=== PATIENT | male | born 1965 | race Asian ===

== ENCOUNTER 2020-08-19 21:35 | Inpatient (IN) | payer OTHER, SELFPAY ==
[2020-08-19 22:01] LABS: Basophils % 0.7 % (0-1.3); Hematocrit 42.6 % (39.6-49.0); Lymphocytes % 28.6 % (15.3-44.8); MPV 7.5 fL (7.6-11.3); RBC Red Blood Cell Count 4.72 M/uL (4.33-5.43)
[2020-08-19] MEDS ORDERED: ONDANSETRON 4 MG/2 ML VIAL ONE (22:04)
[2020-08-19] MEDS ORDERED: NA CHLORIDE 0.9% 1,000 ML ONE (22:04)
[2020-08-19] MEDS ORDERED: MORPHINE 4 MG/ML SYR ONE (22:04)
[2020-08-19 22:20] LABS: ALT/SGPT 34 U/L (12-78); AST/SGOT 24 U/L (15-37); Albumin 4.1 g/dL (3.4-5.0); Alkaline Phosphatase 63 U/L (45-117); BUN Blood Urea Nitrogen 13 mg/dL (7-18); Bicarbonate 28 mmol/L (21-32); Bilirubin Direct < 0.1 mg/dL (0-0.2); Bilirubin Total 0.3 mg/dL (0.2-1.0); Glucose Level 151 mg/dL (74-106); Lipase 136 U/L (73-393); Potassium 3.4 mmol/L (3.5-5.1); Protein, Total 8.8 g/dL (6.4-8.2); Sodium Level 140 mmol/L (136-145)
[2020-08-19] MEDS ORDERED: FENTANYL CITR 100 MCG/2 ML ONE (22:33)
[2020-08-19] MEDS ORDERED: HYDROMORPHONE HCL 1 MG/ML INJ ONE (23:25)
--- NOTE | 2020-08-20 00:39 | EDPHYS ---
Physician Documentation [facility] Name: Fred Bruno Age: 55 yrs Sex: Male : 1965 Arrival Date: 08/19/2020 Time: 21:39 Bed 18 Private MD: ED Physician Sachin Joseph HPI: 08/19 21:54 This 55 yrs old Male presents to ER via Wheelchair with complaints of Abdominal tw4 Pain. 21:54 The patient presents with abdominal pain in the upper abdomen. Onset: The tw4 symptoms/episode began/occurred today. The symptoms radiate to. Associated signs and symptoms: none. The symptoms are described as sharp. Modifying factors: The symptoms are alleviated by nothing, the symptoms are aggravated by nothing. Severity of pain: At its worst the pain was moderate. The patient has not experienced similar symptoms in the past. Historical: - Allergies: 21:46 No Known Drug Allergies; ll1 - PMHx: 21:46 Hypertension; Kidney stones; Sleep Apnea; ll1 - PSHx: 21:46 Cyst removed to right hand; Anal fistula; kidney stone; Lithotripsy; ll1 - Immunization history:: Flu vaccine is not up to date. - Social history:: Smoking status: Patient denies any tobacco usage or history of. ROS: 21:54 Constitutional: Negative for fever, chills, and weight loss, Eyes: Negative for injury, tw4 pain, redness, and discharge, Neck: Negative for injury, pain, and swelling, Cardiovascular: Negative for chest pain, palpitations, and edema, Respiratory: Negative for shortness of breath, cough, wheezing, and pleuritic chest pain, Back: Negative for injury and pain, MS/Extremity: Negative for injury and deformity, Skin: Negative for injury, rash, and discoloration, Neuro: Negative for headache, weakness, numbness, tingling, and seizure. 21:54 Abdomen/GI: Positive for abdominal pain, Negative for nausea and vomiting, nausea, vomiting, and diarrhea, nausea, vomiting, diarrhea, constipation, abdominal cramps, abdominal distension, anorexia, dysphagia, hematemesis, black/tarry stool, rectal pain. Exam: 21:54 Constitutional: This is a well developed, well nourished patient who is awake, alert, tw4 and in no acute distress. Head/Face: Normocephalic, atraumatic. Eyes: Pupils equal round and reactive to light, extra-ocular motions intact. Lids and lashes normal. Conjunctiva and sclera are non-icteric and not injected. Cornea within normal limits. Periorbital areas with no swelling, redness, or edema. Chest/axilla: Normal chest wall appearance and motion. Nontender with no deformity. No lesions are appreciated. Cardiovascular: Regular rate and rhythm with a normal S1 and S2. No gallops, murmurs, or rubs. Normal PMI, no JVD. No pulse deficits. Respiratory: Lungs have equal breath sounds bilaterally, clear to auscultation and percussion. No rales, rhonchi or wheezes noted. No increased work of breathing, no retractions or nasal flaring. Back: No spinal tenderness. No costovertebral tenderness. Full range of motion. Skin: Warm, dry with normal turgor. Normal color with no rashes, no lesions, and no evidence of cellulitis. MS/ Extremity: Pulses equal, no cyanosis. Neurovascular intact. Full, normal range of motion. Neuro: Awake and alert, GCS 15, oriented to person, place, time, and situation. Cranial nerves II-XII grossly intact. Motor strength 5/5 in all extremities. Sensory grossly intact. Cerebellar exam normal. Normal gait. 21:54 Abdomen/GI: Inspection: abdomen appears normal, Bowel sounds: diminished, Palpation: moderate abdominal tenderness, in the epigastric area and right upper quadrant. Vital Signs: 21:43 BP 164 / 89; Pulse 65; Resp 24; Temp 98.5; Pulse Ox 99% ; Pain 8/10; ll1 22:05 BP 102 / 63; Pulse 65; Resp 24; Pulse Ox 98% on R/A; rv 22:30 BP 153 / 95; Pulse 59; Resp 18; Pulse Ox 100% on R/A; lp1 23:00 BP 141 / 89; Pulse 65; Resp 20; Pulse Ox 100% on R/A; Pain 8/10; lp1 1108 00:31 BP 147 / 92; Pulse 71; Resp 23; Pulse Ox 99% on R/A; rv 01:00 Temp 98.6(O); lp1 MDM: 08/19 21:40 Patient medically screened. tw4 08/21 06:49 Differential diagnosis: gastroesophageal reflux disease, pancreatitis, Peptic Ulcer tw4 Disease, Peritonitis. Data reviewed: vital signs, nurses notes. Data interpreted: Pulse oximetry: Interpretation: normal. Counseling: I had a detailed discussion with the patient and/or guardian regarding: the historical points, exam findings, and any diagnostic results supporting the discharge/admit diagnosis. Special discussion: I discussed with the patient/guardian in detail that at this point there is no indication for admission to the hospital. It is understood, however, that if the symptoms persist or worsen the patient needs to return immediately for re-evaluation. 08/19 21:41 Order name: Basic Metabolic Panel; Complete Time: 22:24 tw 08/19 22:24 Interpretation: Normal except: CRE 1.53; GLUC 151; K 3.4; GFR 48. tw 08/19 21:41 Order name: CBC with Diff; Complete Time: 22:24 tw 08/19 22:24 Interpretation: Normal except: MPV 7.5. tw 08/19 21:41 Order name: Hepatic Function; Complete Time: 22:24 [facility] 08/19 22:24 Interpretation: Normal except: TP 8.8; GLOB 4.7; A/G 0.9. [facility] 08/19 21:41 Order name: Lipase; Complete Time: 22:24 [facility] 08/19 22:24 Interpretation: Within normal limits: LIP 136. tw 08/19 21:45 Order name: Troponin (emerg Dept Use Only); Complete Time: 22:24 [facility] 08/19 22:24 Interpretation: Within normal limits: TROPED < 0.02. tw 08/20 00:55 Order name: Basic Metabolic Panel EDVT 08/20 00:55 Order name: Basic Metabolic Panel EDVT 08/20 00:55 Order name: CBC with Automated Diff EDMS 08/20 00:55 Order name: CBC with Automated Diff EDMS 08/20 00:55 Order name: Lipase EDMS 08/20 00:55 Order name: Lipase EDMS 08/20 00:56 Order name: Liver (Hepatic) Function EDMS 08/20 00:56 Order name: Liver (Hepatic) Function EDMS 08/20 01:37 Order name: COVID-19 ar5 08/19 21:41 Order name: IV Saline Lock; Complete Time: 21:49 tw 08/19 21:45 Order name: US Abdomen Limited tw4 08/19 21:45 Order name: CT Abd/Pelvis - IV Contrast Only tw4 08/19 21:45 Order name: EKG; Complete Time: 21:46 [facility] 08/20 00:55 Order name: NPO EDVT 08/20 01:48 Order name: Urine Dipstick--Ancillary (enter results) ar5 08/20 02:01 Order name: CORONAVIRUS EDVT 08/20 02:02 Order name: Urine Dipstick-Ancillary EDVT 08/20 03:01 Order name: SARS-COV-2 RT PCR EDVT 08/19 21:41 Order name: Labs collected and sent; Complete Time: 21:49 [facility] 08/19 21:41 Order name: Urine Dipstick-Ancillary (obtain specimen); Complete Time: 01:57 [facility] 08/19 21:53 Order name: EKG - Nurse/Tech; Complete Time: 21:53 lp1 Administered Medications: 08/19 21:55 Drug: NS 0.9% 1000 ml Route: IV; Rate: 1 bolus; Site: right antecubital; rv 23:38 Follow up: IV Status: Completed infusion; IV Intake: 1000ml lp1 21:55 Drug: morphine 4 mg {Note: RASS 1.} Route: IVP; Site: right antecubital; rv 22:18 Follow up: Response: No change in condition; Pain is unchanged, physician notified lp1 21:56 Drug: Zofran (Ondansetron) 4 mg Route: IVP; Site: right antecubital; rv 23:00 Follow up: Response: No adverse reaction lp1 22:18 Drug: fentaNYL (PF) 25 mcg {Note: RASS 0.} Route: IVP; Site: right antecubital; lp1 23:00 Follow up: Response: Pain is unchanged, physician notified lp1 23:13 Drug: Dilaudid 1 mg Route: IVP; Site: right antecubital; lp1 23:38 Follow up: Response: Marked relief of symptoms; Pain is decreased; RASS: Alert and Calm lp1 (0) 08/20 00:58 Drug: Zosyn 3.375 grams Route: IVPB; Infused Over: 60 mins; Site: left antecubital; rv 01:06 Follow up: IV Status: Infusion continued upon admission rv 01:39 Drug: Dilaudid 0.5 mg {Note: RASS 0.} Route: IVP; Site: left antecubital; lp1 01:56 Follow up: Response: Marked relief of symptoms lp1 Disposition: 08/20/20 00:38 Hospitalization ordered by Angel Travis for Inpatient Admission. Preliminary diagnosis is Acute cholecystitis. - Bed requested for Telemetry/MedSurg (Inpatient). - Status is Inpatient Admission. em - Condition is Stable. - Problem is new. - Symptoms have improved. Signatures: Dispatcher [employer] EDMS Constanza Gutiérrez, RN RN Glenys Kennedy, RN RN Ilir Astorga, RN RN em Ela Lott, RN RN lp1 Sachin Josehp MD MD tw4 Km Turner, RN RN Clara Madrid, RN RN ll1 Corrections: (The following items were deleted from the chart) 00:44 00:38 Hospitalization Ordered by Angel Travis MD for Inpatient Admission. Preliminary diagnosis is Acute cholecystitis. Bed requested for Telemetry/MedSurg (Inpatient). Status is Inpatient Admission. Condition is Stable. Problem is new. Symptoms have improved. tw4 05:46 00:44 08/20/2020 00:38 Hospitalization Ordered by Angel Travis MD for Inpatient Admission. Preliminary diagnosis is Acute cholecystitis. Bed requested for [facility] ER HOLD. Status is Inpatient Admission. Condition is Stable. Problem is new. Symptoms have improved. 08:26 05:46 08/20/2020 00:38 Hospitalization Ordered by Angel Travis MD for Inpatient em Admission. Preliminary diagnosis is Acute cholecystitis. Bed requested for Telemetry/MedSurg (Inpatient). Status is Inpatient Admission. Condition is Stable. Problem is new. Symptoms have improved. mw
--- NOTE | 2020-08-20 00:39 | ER ---
Nurse's Notes [facility] Name: Fred Bruno Age: 55 yrs Sex: Male : 1965 Arrival Date: 08/19/2020 Time: 21:39 Bed 18 Private MD: Diagnosis: Acute cholecystitis Presentation: 08/19 21:43 Chief complaint: Patient states: Upper abdominal pain since 1700 today getting ll1 progressively worse. Pain radiates into chest and back. + N/V after eating supper. Temperature 99.5 at home. + SOB, no cough. + diaphoretic. Coronavirus screen: Client denies travel out of the [place] in the last 14 days. chills, difficulty breathing, fever, nausea, shortness of breath, vomiting. Client presents with at least one sign or symptom that may indicate coronavirus-19. Standard/surgical mask placed on the client. Ebola Screen: Patient denies travel to an Ebola-affected area in the 21 days before illness onset. Initial Sepsis Screen: Does the patient meet any 2 criteria? No. Patient's initial sepsis screen is negative. Does the patient have a suspected source of infection? Yes: Acute abdominal pain. Risk Assessment: Do you want to hurt yourself or someone else? Patient reports no desire to harm self or others. Onset of symptoms was August 19, 2020. 21:43 Method Of Arrival: Wheelchair ll1 21:43 Acuity: LILLIAN 2 ll1 Historical: - Allergies: 21:46 No Known Drug Allergies; ll1 - PMHx: 21:46 Hypertension; Kidney stones; Sleep Apnea; ll1 - PSHx: 21:46 Cyst removed to right hand; Anal fistula; kidney stone; Lithotripsy; ll1 - Immunization history:: Flu vaccine is not up to date. - Social history:: Smoking status: Patient denies any tobacco usage or history of. Screenin:00 Fall Risk None identified. rv 22:00 Abuse screen: Denies threats or abuse. Denies injuries from another. Nutritional rv screening: No deficits noted. Tuberculosis screening: No symptoms or risk factors identified. Assessment: 21:45 General: Appears uncomfortable, Behavior is restless. Pain: Complains of pain in lp1 epigastric area, right upper quadrant and left upper quadrant Pain radiates to back Pain currently is 8 out of 10 on a pain scale. Quality of pain is described as pressure, squeezing, Pain began 3 hours ago. Is continuous. Neuro: Level of Consciousness is awake, alert, obeys commands, Oriented to person, place, time, situation. Cardiovascular: Denies chest pain, Capillary refill < 3 seconds in bilateral fingers Rhythm is sinus rhythm. Respiratory: Respiratory pattern is hyperventilation. GI: Abdomen is non-distended, Bowel sounds present X 4 quads. Abdomen is tender to palpation in epigastric area, right upper quadrant and left upper quadrant. : No signs and/or symptoms were reported regarding the genitourinary system. EENT: No signs and/or symptoms were reported regarding the EENT system. Derm: Skin is intact, Skin is diaphoretic, Skin is normal. Musculoskeletal: No deficits noted. 22:17 Reassessment: Patient reports pain with no improvement; Provider notified; Verbal order lp1 given for Fentanyl 25mcg IV now. 22:25 Reassessment: Ultrasound at bedside. lp1 23:10 Reassessment: Provider notified of patient complaint of continued upper abdominal pain lp1 with no relief. 23:38 Reassessment: Patient returned from CT; Appears more comfortable, calm; Reports pain lp1 relief at this time. 08/20 01:38 Reassessment: Patient reports pain returning at this time; Verbal order from Dr. Joseph lp1 for Dilaudid 0.5mg IV now. 07:34 Reassessment: unable to give report at this time due to nurse still getting morning em report, will call back. Vital Signs: 08/19 21:43 BP 164 / 89; Pulse 65; Resp 24; Temp 98.5; Pulse Ox 99% ; Pain 8/10; ll1 22:05 BP 102 / 63; Pulse 65; Resp 24; Pulse Ox 98% on R/A; rv 22:30 BP 153 / 95; Pulse 59; Resp 18; Pulse Ox 100% on R/A; lp1 23:00 BP 141 / 89; Pulse 65; Resp 20; Pulse Ox 100% on R/A; Pain 8/10; lp1 08/20 00:31 BP 147 / 92; Pulse 71; Resp 23; Pulse Ox 99% on R/A; rv 01:00 Temp 98.6(O); lp1 ED Course: 08/19 21:39 Patient arrived in ED. ar5 21:40 Sachin Joseph MD is Attending Physician. tw4 21:42 Km Turner, RN is Primary Nurse. rv 21:45 Triage completed. ll1 21:45 Inserted saline lock: 20 gauge in right antecubital area, using aseptic technique. lp1 Blood collected. 21:45 Initial lab(s) drawn, by me, sent to lab. lp1 21:46 Arm band placed on Patient placed in an exam room, on a stretcher. ll1 21:49 EKG done, by ED staff, reviewed by Sachin Joseph MD. rv 22:00 Patient has correct armband on for positive identification. rv 22:12 Radiology exam delayed due to lab results not completed at this time. (BUN/Creatinine). mw3 22:50 Ultrasound completed. Patient tolerated well. Notified. sg3 23:25 Inserted saline lock: 20 gauge in left antecubital area, using aseptic technique. lp1 23:25 20g IV to R AC DC'd. lp1 23:36 Ela Lott, GUILLERMO is Primary Nurse. lp1 23:50 CT Abd/Pelvis - IV Contrast Only In Process Unspecified. EDMS 08/20 00:38 Angel Travis MD is Hospitalizing Provider. tw4 01:00 No provider procedures requiring assistance completed. IV is patent, with fluids rv infusing freely, Patient admitted, IV remains in place. 01:05 Abdomen Limited In Process Unspecified. EDMS Administered Medications: 08/19 21:55 Drug: NS 0.9% 1000 ml Route: IV; Rate: 1 bolus; Site: right antecubital; rv 23:38 Follow up: IV Status: Completed infusion; IV Intake: 1000ml lp1 21:55 Drug: morphine 4 mg {Note: RASS 1.} Route: IVP; Site: right antecubital; rv 22:18 Follow up: Response: No change in condition; Pain is unchanged, physician notified lp1 21:56 Drug: Zofran (Ondansetron) 4 mg Route: IVP; Site: right antecubital; rv 23:00 Follow up: Response: No adverse reaction lp1 22:18 Drug: fentaNYL (PF) 25 mcg {Note: RASS 0.} Route: IVP; Site: right antecubital; lp1 23:00 Follow up: Response: Pain is unchanged, physician notified lp1 23:13 Drug: Dilaudid 1 mg Route: IVP; Site: right antecubital; lp1 23:38 Follow up: Response: Marked relief of symptoms; Pain is decreased; RASS: Alert and Calm lp1 (0) 08/20 00:58 Drug: Zosyn 3.375 grams Route: IVPB; Infused Over: 60 mins; Site: left antecubital; rv 01:06 Follow up: IV Status: Infusion continued upon admission rv 01:39 Drug: Dilaudid 0.5 mg {Note: RASS 0.} Route: IVP; Site: left antecubital; lp1 01:56 Follow up: Response: Marked relief of symptoms lp1 Intake: 08/19 23:38 IV: 1000ml; Total: 1000ml. lp1 Outcome: 08/20 00:38 Decision to Hospitalize by Provider. tw4 01:01 Admitted to ER Hold. Please see [facility] for further documentation. rv 01:01 Condition: good 01:01 Instructed on the need for admit, Demonstrated understanding of instructions. 08:26 Patient left the ED. em Signatures: Dispatcher [employer] Ilir Callaway RN RN em Ela Lott RN RN lp1 Susanne Dai 3 Sachin Joseph MD MD tw4 Cheryl Pa 3 Km Turner RN RN rv Katie Desai ar5 Clara Madrid RN RN ll1
[2020-08-20] MEDS ORDERED: ONDANSETRON 4 MG/2 ML VIAL IV PRN ×2 (00:53→13:51)
[2020-08-20] MEDS: PIPER/TAZO/NS 3.375gm 3.375 GM/100 ML BAG IVPB SCH ×4 (01:00→17:19)
[2020-08-20] MEDS: D5 0.45 NS 1,000 ML IV SCH ×5 (01:00→22:08)
[2020-08-20] MEDS ORDERED: NA CHLORIDE 0.9% 1,000 ML ONE (01:03)
[2020-08-20] MEDS ORDERED: PIPER/TAZO/NS 3.375gm 3.375 GM/100 ML BAG ONE (01:03)
[2020-08-20] MEDS ORDERED: D5 0.45 NS 1,000 ML IV ONE (01:46)
[2020-08-20] MEDS ORDERED: HYDROMORPHONE HCL 0.5 MG/0.5 ML INJ ONE (01:47)
[2020-08-20 02:02] LABS: Urine Blood NEGATIVE (NEG); Urine Glucose NEGATIVE (NEG); Urine Protein NEGATIVE (NEG)
[2020-08-20 02:06] VITALS: BMI 34.4
[2020-08-20] MEDS: MORPHINE 4 MG/ML SYR IV PRN ×2 (04:04→10:11)
[2020-08-20] MEDS ORDERED: MORPHINE 4 MG/ML SYR ONE (04:10)
--- NOTE | 2020-08-20 10:52 | RAD REPORT ---
EXAM DESCRIPTION: US - Abdomen Exam Limited - 08/20/2020 1:05 am CLINICAL HISTORY: ABD PAIN COMPARISON: No comparisons FINDINGS: The gallbladder demonstrates small stones and gallbladder sludge. No pericholecystic fluid or gallbladder wall thickening. The common bile duct is normal measuring 4 mm. The liver demonstrates no findings of intrahepatic biliary dilatation. IMPRESSION: Small stones and gallbladder sludge noted.
[2020-08-20] MEDS: INSULIN -REGULAR HUMAN 50 UNIT/0.5 ML ML SQ SCH ×3 (11:30→21:00)
[2020-08-20] MEDS ORDERED: Ringers Lactate 1,000 ML IV ONE (11:34)
--- NOTE | 2020-08-20 11:36 | HP ---
Date of Admission: 08/20/2020 Brief History Of Present Illness: The patient is a 55-year-old male who presents to the hospit al with complaints of abdominal pain beginning in the epigastrium yesterday, sharp stabbing, doubling him over in pain with radiation through to his back. He has never had similar episodes before in past. He was brought in the hospital, had significant improvement of his symptoms. However, he sh ortly thereafter developed hiccups, which caused the pain to recur and it has been getting progressiv tam worse, sharper in the right upper quadrant and through the epigastric and back areas. He has had a history of kidney stones before in the past requiring lithotripsy, but he states this does not fee l like that. Past Medical History: Significant for hypertension, nephrolithiasis, anal fistulas, obstructive slee p apnea. Past Surgical History: Includes cyst removed from the right hand, lithotripsy. Allergies: NO KNOWN DRUG ALLERGIES. Home Medications: Included only olmesartan hydrochlorothiazide. Social History: He denies smoking, drinking, or recreational drug use. He works as an chief engineer. Family History: Significant for cholangiocarcinoma. Review of Systems: Ten-point review of systems other than HPI, denies. Physical Examination: Vital Signs: At the time of my examination his blood pressure was 157/67, pulse is 77, respiratory r ate 18, temperature is 97.2, SpO2 97% on room air. General: He is awake, alert, oriented. Psychiatric: He is appropriate and conversive. He appears in mild distress. Neck: Supple without JVD. Chest: Normal expansion. Cardiovascular: Regular rate and rhythm. Pulmonary: Clear to auscultation bilaterally. Abdomen: Soft with mild right upper quadrant tenderness to palpation. There is positive voluntary g uarding and positive Arce sign. The remainder of abdominal exam is unremarkable. Extremities: No clubbing, cyanosis, or edema. Skin: Warm and dry. Laboratory Data: Reveals a white blood count of 10.5, hemoglobin is 14.9, hematocrit of 42.6, platel et count of 306, neutrophils are 61%. Sodium 140, potassium 3.4, chloride 105, carbon dioxide 28, BU N 13, creatinine 1.5, glucose is 151. His total bilirubin was 0.3, direct component less than 0.1, A ST 24, ALT 34, alkaline phosphatase is 63, lipase 163. His UA was essentially negative. He had imag ing performed, which included a CT scan performed of the abdomen and pelvis, read by the [facility] diologist as there is gallbladder and biliary system, mild gallbladder wall thickening with subtle in filtration of the pericholecystic fat. No calcified gallstones. There is mild atrophy of the pancre atic tail. The liver is enlarged and diffusely low in density compatible with steatosis. The append ix is normal in caliber. No findings to suggest acute appendicitis. There is a small fat containing umbilical and bilateral inguinal hernias. The official impression is findings, which may be related to early acute cholecystitis. He had an ultrasound performed as well. The official dictation is cu rrently pending. The CBD was 0.43, gallbladder wall 0.29. There appeared to be some sludgelike mate rial to my interpretation consistent with likely gallstones evident near the neck of the gallbladder. The official dictation is not available at this time and the report has not been read. Assessment And Plan: This is a 55-year-old male who presents with signs and symptoms of early calcul ous cholecystitis. 1.IV fluid hydration. 2.Antibiotic coverage with Zosyn 3.375 IV q.6. 3.Medical management. 4.I have explained the risks, benefits, and alternatives of laparoscopic possible open cholecystecto my and indicated procedures including, but not limited to bleeding, infection, damage to surrounding tissues, need for further operation and procedures, injury to bile ducts, intestines, sepsis, , blood clots, heart attack, stroke, and other unforeseen complications. The patient agrees to proceed as indicated. ELIEZER/DAVON Voice ID: [id number]
[2020-08-20] MEDS ORDERED: LIDOCAINE 2% MPF 5 ML VIAL ONE ×2 (11:39→11:40)
[2020-08-20] MEDS ORDERED: ROCURONIUM 50 MG/5 ML VIAL IV ONE (11:39)
[2020-08-20] MEDS ORDERED: propofoL 200 MG/20 ML VIAL IV ONE (11:39)
[2020-08-20] MEDS ORDERED: FENTANYL CITR 100 MCG/2 ML ONE (11:40)
[2020-08-20] MEDS ORDERED: BUPIVACA 0.5%/EPI 0.0005%/PF 30 ML VIAL ONE (11:43)
[2020-08-20] MEDS ORDERED: SUCCINYLCHOLINE 20 MG/ML (10 ML) IV ONE (11:49)
[2020-08-20] MEDS ORDERED: ONDANSETRON 4 MG/2 ML VIAL ONE (12:22)
[2020-08-20] MEDS ORDERED: dexAMETHasone 4 MG/ML VIAL ONE (12:22)
[2020-08-20] MEDS ORDERED: KETOROLAC 30 MG/ML INJ ONE (12:22)
[2020-08-20] MEDS ORDERED: NEOSTIGMINE 1 MG/ML -5 ML ONE (12:25)
[2020-08-20] MEDS ORDERED: GLYCOPYRROLATE 0.2 MG/ML SYR ONE (12:25)
--- NOTE | 2020-08-20 13:19 | P.OP ---
Preoperative diagnosis: Acute Calculous Cholecystitis Postoperative diagnosis: Acute Calculous Gangrenous Cholecystitis Primary procedure: Laparoscopic Cholecystectomy Anesthesia: GETA + Local Estimated blood loss: <5cc Specimen: Gallbladder Findings: Gangrenous GB, cystic duct almost to CBD, Ant/Post Br Cystic Artery Complications: None Drain(s): BILLIE drain (Flat 10mm) Transferred to: Recovery Room Condition: Good
[2020-08-20] MEDS ORDERED: HYDROCODONE/APAP 7.5/325 MG TAB PO PRN (13:51)
[2020-08-20] MEDS ORDERED: HYDROMORPHONE HCL 1 MG/ML INJ IV PRN (13:51)
--- NOTE | 2020-08-20 14:05 | OP ---
Date of Procedure: 08/20/2020 Surgeon: Angel Travis MD, Preoperative Diagnosis: Acute calculous cholecystitis. Postoperative Diagnosis: Acute gangrenous cholecystitis. Procedure: Laparoscopic cholecystectomy. Anesthesia: General endotracheal plus local with 0.25% Marcaine. Estimated Blood Loss: Less than 5 mL. Specimens: Gallbladder. Findings: 1.Gangrenous gallbladder. 2.Gangrenous changes extended into the cystic duct and almost to the confluence of the CBD. 3.Anterior and posterior branches of cystic artery were appreciated, both controlled. Complications: None. Drains: A BILLIE drain placed in the subhepatic space. This was a flat 10 mm BILLIE drain. Disposition: The patient transferred to recovery room in good condition. Procedure In Detail: After informed consent was obtained, the patient was brought to the operating r oom, prepped and draped in the usual sterile fashion. After adequate anesthesia achieved, a supraumb ilical area was anesthetized with 0.25% Marcaine and sharply incised, and a 5 mm 0-degree optical tro car was introduced in the abdomen without evidence of complication. Insufflation was obtained to 15 mmHg at this time. There was no injury to vital structures upon entry into the abdomen. Three addit ional trocars were placed, 1 in the epigastrium, 2 in the right upper quadrant. These were similarly anesthetized and sharply incised. A 5 mm trocar was introduced in the abdomen without evidence of c omplication. The umbilical trocar was then up-sized to a 12 mm under direct visualization without ev idence of complication. The patient was positioned head up right-side up position. Ratcheted graspe r was used to remove the omentum off the anterior surface. The gallbladder was found to be caked ont o the anterior surface requiring meticulous dissection to peel this off the inflamed anterior surface of the gallbladder. After this was performed, using a combination of electrocautery and blunt disse ction, the gallbladder was attempted to be grasped, which could not be done at this time. A decompre ssion needle was brought in and stabbed into the fundus of the gallbladder. Dark black bile was logan zhang and the gallbladder was manipulated at this time and as such, I grasped the patient's fundus of t he gallbladder and paced towards the patient's right shoulder. Meticulous dissection continued down on the anterior surface of the gallbladder. I scored the peritoneum to allow for visualization of th e gallbladder wall, which was found to be gangrenous grossly throughout the entire surface of the gal lbladder. All portions of the gallbladder appeared gangrenous at this point and there appeared to be some bile spillage in the abdomen prior to grasping and decompression of the gallbladder as there wa s a punctate area of leakage of bile on the anterior surface of the gallbladder prior to manipulation and decompression. At this point, I continued the dissection to encircle 2 structures, which were i dentified as a cystic duct and cystic artery. The cystic artery had both anterior and posterior bran ch. The anterior branch was found to be quite long towards the medial aspect. The posterior branch went through the more normal anatomic plane; however, it did curve more towards the lateral aspect of the gallbladder bed, but was seen entering the gallbladder directly. After these structures were co mpletely skeletonized and encircled, I placed double titanium clips in both the proximal and distal s ides of the anterior and posterior branch of the cystic artery and ligated the structures. I then af ter identifying the cystic duct continued careful dissection to appreciate that the gangrenous change s extended down into the cystic duct and almost to the confluence of the CBD/common bile duct. At th is point, I encircled this area and skeletonized it once again farther down somewhat. There was no b leeding or leakage of bile at this point. I then placed double titanium clips on the proximal side a nd singly on the distal side of the cystic duct and ligated the structure at this point. I brought i n an Endoloop of 0 Vicryl and secured under my clips, the cystic duct with 2 Vicryl Endoloops without narrowing the CBD confluence. At this point, I removed the gallbladder from the hepatic fossa witho ut evidence of complication. All bleeding was easily controlled with electrocautery. The gallbladde r was then placed in EndoCatch bag, removed the umbilical trocar, and sent off for pathologic examina tion. I then re-insufflated the abdomen, copiously irrigated it multiple times until completely florence r, suctioned out all bile spillage, and irrigated the perihepatic space and suctioned this until comp letely dry. A 10 mm flat BILLIE drain was then brought into the subhepatic space and secured to the skin through the lateral inferior most trocar with a 3-0 nylon suture. At this point, the patient was po sitioned back in the neutral position. The drain was found to be in good anatomic position and I the n removed the umbilical trocar and closed the umbilical trocar site using a Trev-Jana suture pa sser with a 0 Vicryl in interrupted fashion with good approximation of tissues. The abdomen was comp letely desufflated under direct visualization without evidence of complication. All remaining trocar s were removed. All skin incisions were copiously irrigated and closed with 4-0 Monocryl in a runnin g fashion. Dermabond was placed over top. The patient tolerated the procedure well without evidence of complication and transferred to PACU in good condition. All counts were correct at the end of e case. ELIEZER/DAVON Voice ID: [id number] Report ID: [id number]
[2020-08-20] MEDS ORDERED: POTASSIUM CL SA 10 MEQ TAB PO ONE ×2 (16:38→17:00)
[2020-08-21] MEDS: PIPER/TAZO/NS 3.375gm 3.375 GM/100 ML BAG IVPB SCH ×3 (00:45→16:22)
[2020-08-21 04:18] LABS: Basophils % 0.1 % (0-1.3); Hematocrit 37.7 % (39.6-49.0); Lymphocytes % 12.1 % (15.3-44.8); MPV 8.1 fL (7.6-11.3); RBC Red Blood Cell Count 4.14 M/uL (4.33-5.43)
[2020-08-21 04:37] LABS: Albumin 3.2 g/dL (3.4-5.0); Bilirubin Total 0.8 mg/dL (0.2-1.0); Magnesium 2.2 mg/dL (1.8-2.4); Phosphorus 2.5 mg/dL (2.5-4.9); Potassium 3.9 mmol/L (3.5-5.1); Protein, Total 6.9 g/dL (6.4-8.2)
[2020-08-21] MEDS ORDERED: POTASSIUM CL SA 10 MEQ TAB PO ONE (04:53)
--- NOTE | 2020-08-21 07:25 | EKG ---
Test Date: 2020-08-19 Test Time: 21:44:32 Process Architect: RV MEASUREMENT RESULTS: Intervals: Rate: 64 TN: 122 QRSD: 98 QT: 394 QTc: 406 Alexander: P: 15 TN: 122 QRS: 51 T: 52 INTERPRETIVE STATEMENTS: Normal sinus rhythm Normal ECG Compared to ECG 05/15/2015 08:43:09 No significant changes Electronically Signed On 08-21-20 07:23:36 TABLE FILLER by Patel Horne
[2020-08-21] MEDS: INSULIN -REGULAR HUMAN 50 UNIT/0.5 ML ML SQ SCH ×4 (07:30→20:36)
[2020-08-21] MEDS: D5 0.45 NS 1,000 ML IV SCH ×3 (09:16→21:45)
--- NOTE | 2020-08-21 09:39 | P.PN ---
Subjective Date of Service: 08/21/20 Subjective: Improving (patient feels much better today) Physical Examination - Vital Signs Temperature: 97.2 F Blood Pressure: 132/62 Pulse: 70 Respirations: 18 Pulse Ox (%): 94 - Physical Exam General: Alert, In no apparent distress, Cooperative Respiratory: Clear to auscultation bilaterally Cardiovascular: Regular rate/rhythm Gastrointestinal: Other (soft, mild appropriate TTP, ND, incisions clean, BILLIE serosanguanous,non-bilous) Neurological: Normal speech Assessment And Plan - Current Problems (Diagnosis) (1) Cholecystitis with gangrene of gallbladder Current Visit: Yes Status: Acute Plan: - Continue current pain regime, encourage PO - Incentive Spirometry - Ambulate with assist - Continue BILLIE - serial exams - advance diet to low fat - likely DC in am with BILLIE drain teaching (2) Cholecystitis with perforation of gallbladder Current Visit: Yes Status: Acute
--- NOTE | 2020-08-21 11:21 | RAD REPORT ---
EXAM DESCRIPTION: CT ABDOMEN PELVIS WITH IV CONTRAST CLINICAL HISTORY: ABD PAIN TECHNIQUE: Contiguous axial images obtained through the abdomen and pelvis following the uneventful administration of IV contrast. Coronal and sagittal reformatted images were provided. This exam was performed according to our departmental dose-optimization program, which includes autom ated exposure control, adjustment of the mA and/or kV according to patient size and/or use of iterati ve reconstruction technique. COMPARISON: 05/15/2015 FINDINGS: Lung bases: Clear Liver: The liver is enlarged and diffusely low in density compatible with steatosis. Gallbladder and biliary system: Mild gallbladder wall thickening with subtle infiltration of the ambar cholecystic fat. No calcified gallstones. Pancreas: Mild atrophy of the pancreatic tail. Spleen: Unremarkable Adrenals: Unremarkable Kidneys: Normal renal cortical enhancement. Small left renal calculi. Subcentimeter left renal hypode nsities which are too small to characterize. No hydronephrosis. Bowel: No obstruction. No appreciable mucosal thickening. Appendix: Normal caliber appendix. No findings to suggest acute appendicitis. Urinary bladder: Unremarkable Reproductive: Unremarkable as visualized Lymph nodes: Top normal portal hepatic and portacaval lymph nodes, similar to the prior. Peritoneum: No focal fluid collection. No free air. Vessels: No abdominal aortic aneurysm. Abdominal wall: Small fat-containing umbilical and bilateral inguinal hernias. Bones: Multilevel spondylosis. No acute fracture. IMPRESSION: 1. Findings which may be related to early acute cholecystitis. 2. Other findings as above. Electronically signed by: Kath Gregorio MD 08/20/2020 12:07 AM SUPERINTENDENT MENAGERIE Due to temporary technical issues with the PACS/Fluency reporting system, reports are being signed by the in house radiologist without review as a courtesy to ensure prompt reporting. The interpreting r adiologist is fully responsible for the content of the report.
[2020-08-22] MEDS: D5 0.45 NS 1,000 ML IV SCH ×3 (01:00→17:00)
[2020-08-22] MEDS: PIPER/TAZO/NS 3.375gm 3.375 GM/100 ML BAG IVPB SCH ×3 (01:11→17:00)
[2020-08-22 04:48] LABS: Bilirubin Total 0.5 mg/dL (0.2-1.0); Phosphorus 2.4 mg/dL (2.5-4.9); Potassium 3.6 mmol/L (3.5-5.1); Protein, Total 6.6 g/dL (6.4-8.2)
[2020-08-22 04:49] LABS: Albumin 2.9 g/dL (3.4-5.0); Magnesium 2.3 mg/dL (1.8-2.4)
[2020-08-22] MEDS: INSULIN -REGULAR HUMAN 50 UNIT/0.5 ML ML SQ SCH ×3 (07:30→16:28)
[2020-08-22 08:20] LABS: Absolute Lymphocytes (CBC) 3.5 K/uL (0.7-4.9); Basophils % 0.5 % (0-1.3); Hematocrit 38.2 % (39.6-49.0); Lymphocytes % 33.6 % (15.3-44.8); MPV 7.4 fL (7.6-11.3); RBC Red Blood Cell Count 4.23 M/uL (4.33-5.43)
[2020-08-22] MEDS ORDERED: POTASSIUM CL SA 10 MEQ TAB PO ONE (09:00)
[2020-08-22] MEDS: POTASS/SODIUM PHOSPHATE 1 PKT POWD.PACK PO SCH ×3 (09:11→11:27)
[2020-08-22 10:52] VITALS: O2SAT 98
--- NOTE | 2020-08-22 16:17 | P.DS ---
Admission Date: 08/20/20 Discharge Date: 08/22/20 Disposition: ROUTINE DISCHARGE Discharge Condition: GOOD Procedures: laparoscopic cholecystectomy with placement of patsy drain for gangrenous cholecystitis - Problems (1) Cholecystitis with gangrene of gallbladder Current Visit: Yes Status: Acute (2) Cholecystitis with perforation of gallbladder Current Visit: Yes Status: Acute Hospital Course: patient did well, lfts normal, wbc normal, feels well, no complaitns, patsy non- bilious Vital Signs/Physical Exam: Temp Pulse Resp BP Pulse Ox 97.7 F 67 16 146/88 H 99 08/22/20 12:00 08/22/20 12:00 08/22/20 12:00 08/22/20 12:00 08/22/20 12:00 General: Alert, In no apparent distress, Cooperative HEENT: Mucous membr. moist/pink Respiratory: Clear to auscultation bilaterally, Normal air movement Gastrointestinal: Other (soft, mild appropriate TTP, ND, PATSY serosangous) Integumentary: No rashes, No tenderness/swelling Neurological: Normal gait, Normal speech Laboratory Data at Discharge: WBC 10.4 K/uL (4.3-10.9) D 08/22/20 08:10 Hgb 13.4 g/dL (13.6-17.9) L 08/22/20 08:10 Hct 38.2 % (39.6-49.0) L 08/22/20 08:10 Plt Count 264 K/uL (152-406) 08/22/20 08:10 Sodium 143 mmol/L (136-145) 08/22/20 04:12 Potassium 3.6 mmol/L (3.5-5.1) 08/22/20 04:12 BUN 11 mg/dL (7-18) 08/22/20 04:12 Creatinine 0.99 mg/dL (0.55-1.3) 08/22/20 04:12 Glucose 116 mg/dL (74-106) H 08/22/20 04:12 Phosphorus 2.4 mg/dL (2.5-4.9) L 08/22/20 04:12 Magnesium 2.3 mg/dL (1.8-2.4) 08/22/20 04:12 Total Bilirubin 0.5 mg/dL (0.2-1.0) 08/22/20 04:12 AST 41 U/L (15-37) H 08/22/20 04:12 ALT 48 U/L (12-78) 08/22/20 04:12 Alkaline Phosphatase 44 U/L (45-117) L 08/22/20 04:12 Lipase 136 U/L (73-393) 08/19/20 21:45 Home Medications: Olmesartan/Hydrochlorothiazide [Olmesartan-Hctz 40-12.5 mg Tab] 1 each PO DAILY 08/20/20 Diet: [place] Activity: No lifting more than 10 lbs Followup: Unknown,U [Primary Care Provider] - Angel Travis MD [ACTIVE - CAN ADMIT] - Time spent managing pt's care (in minutes): 35
[2020-08-22 16:31] VITALS: BP 145/80; TEMP 97.6
== END 2020-08-22 17:55 | disposition home or self-care (01) | DRG 418 ==
LOC: ER 21:35 → ERHOLD 08-20 01:07 → 2ND 08-20 08:03
PROVIDERS: ADMIT Surgery; ATTEND Surgery
PROC: 0W9G4ZZ Drainage of Peritoneal Cavity, Percutaneous Endoscopic Approach (ICD-10-PCS; 2020-08-20)
PROC: 0FT44ZZ Resection of Gallbladder, Percutaneous Endoscopic Approach (ICD-10-PCS; principal; 2020-08-20 11:30)
DX: K81.0 Acute cholecystitis (principal); K82.A2 Perforation of gallbladder in cholecystitis; K82.A1 Gangrene of gallbladder in cholecystitis; I10 Essential (primary) hypertension; Z79.899 Other long term (current) drug therapy; Z20.828 Contact with and (suspected) exposure to other viral communicable diseases
CPT/HCPCS: 36415; 74177; 76705; 80048; 80053; 80076; 81003; 82947; 83690; 83735; 84100; 84132; 84484; 85025; 88304; 93005; 94010; 99285; J0330; J1100; J1170; J2405; J2543; J2704; J2710; J3010; J7030; J7120; J7799; Q9967; U0003